=== PATIENT | female | born 1935 | race Caucasian/White ===

== ENCOUNTER 2018-12-07 15:57 | Observation (INO) ==
[2018-12-07 16:27] LABS: Urine Bilirubin Negative (NEGATIVE); Urine Ketone Negative (NEGATIVE); Urine Nitrite Negative (NEGATIVE); Urine Protein Negative (NEGATIVE); Urine Specific Gravity 1.025 SP.GR. (1.005-1.010); Urine Urobilinogen Normal (NORMAL); Urine pH 5.5 pH (5.0-7.0)
[2018-12-07] MEDS ORDERED: DIATRIZOATE MEGLUMINE, SODIUM 30 ML BTL PO ONE (16:27)
[2018-12-07 16:31] LABS: Hematocrit 44.8 % (37.0-47.0); Hemoglobin 14.6 gm/dL (12.5-16.0); Mean Cell Volume 91.8 fl (78-100); Mean Corpuscular Hemoglobin 29.9 pg (27-31); Mean Corpuscular Hgb Conc 32.6 g/dl (32-36); Mean Platelet Volume 10.3 fl (8-12.5); Neutrophil # 6.4 K/mm3 (1.3-6.0); Neutrophil % 66.8 % (42-75.0); Platelet Count 260 K/mm3 (150-450); Red Blood Count 4.88 M/mm3 (4.2-5.4); Red Cell Distribution Width 14.2 % (11.5-14.0); White Blood Count 9.6 K/mm3 (4.0-10.5)
[2018-12-07 16:37] LABS: Urine Appearance Clear (CLEAR); Urine Bacteria 1+; Urine Blood 5 /ul (NEGATIVE); Urine Color Pale Yellow; Urine Mucus TRACE; Urine RBC None Seen /hpf (0-5); Urine WBC None Seen /hpf (0-5)
[2018-12-07 16:55] LABS: Albumin * 4.1 gm/dl (3.4-5.0); Anion Gap 11.8 mmol/L (6.8-13.8); BUN/Creatinine Ratio 16.3 (9.0-21.6); Bilirubin, Total 0.6 mg/dL (0.0-1.1); Ca. Corrected For Albumin 8.3 mg/dL (8.4-10.2); Calcium * 8.7 mg/dL (7.9-10.9); Carbon Dioxide 30.4 mmol/L (24-32.6); Potassium 3.2 mmol/L (3.4-4.6); Total Protein 7.6 gm/dL (6.2-8.2)
[2018-12-07] MEDS ORDERED: ONDANSETRON HCL/PF 2 MG/ML VIAL IV ONE ×2 (17:00→17:44)
[2018-12-07] MEDS ORDERED: METOCLOPRAMIDE HCL 5 MG/ML VIAL IV ONE (19:10)
--- NOTE | 2018-12-07 19:15 | ERNOTE ---
Abdominal HPI - Narrative Date of Service: 12/07/18 - General Chief Complaint: Abdominal Pain Time Seen by Provider: 12/07/18 16:21 Source: patient Exam Limitations: no limitations - Immun/Allergies/Home Medications Immunizatons: IMMUNIZATION HX Immunizations Up to Date No History of Influenza Vaccine No Hx Pneumococcal Vaccination Yes Allergies/Adverse Reactions: Allergies codeine [Codeine] Adverse Reaction (Unknown, Verified 12/07/18 16:11) unknown Home Medications: HOME MEDICATIONS Aspirin [Aspirin Enteric Coated] 81 mg PO DAILY 08/08/12 [Last Taken 08/08/12 07:30] Atorvastatin Calcium [Lipitor] 10 mg PO DAILY 02/13/14 [Last Taken Unknown] Metoprolol Tartrate [Lopressor] 12.5 mg PO BID 02/13/14 [Last Taken Unknown] Ciprofloxacin HCl [Cipro] 500 mg PO BID #20 tab 12/01/18 [Last Taken Unknown] Ondansetron [Zofran Odt] 4 mg PO Q6H PRN #20 tab 12/01/18 [Last Taken Unknown] - History of Present Illness Narrative: Patient presents to the ED for no bowel movement and abdominal cramping since Tuesday. She had problems woth constipation for some time, was seen here on with x-ray and labs. Treated with ABx for UTI but still has not had BM and having central abdominal cramping. No CP or SOB. Nausea with this. No fever. Still urinating normally. No back pain. Timing: constant, getting worse Quality: moderate Activities at Onset: none Modifying Factors - (Improves): Present: other - nothing Modifying Factors - (Worsens): Present: other - nothing Associated Symptoms: Present: nausea. Absent: back pain, fever/chills, shortness of breath, swelling/mass in abdomen Prior Abdominal Problems: Absent: recent trauma Prior Treatment: Present: recently seen, currently on antibiotics Review of Systems - Review of Systems Constitutional: Absent: fever Respiratory: Absent: shortness of breath Cardiology: Absent: chest pain Gastrointestinal/Abdominal: Present: See HPI Genitourinary: Absent: dysuria Musculoskeletal: Present: no symptoms reported Neurological: Absent: weakness All Other Systems: All systems neg except as marked Medical History (Updated 12/07/18 @ 19:15 by Samir Santana MD) HLD (hyperlipidemia) HTN (hypertension) Surgical History: Surgical History (Updated 12/01/18 @ 09:37 by Jaison Mac RN) Hx of heart valve replacement with bioprosthetic valve Family History: Family History (Updated 12/01/18 @ 10:37 by Melissa Cage RN) Other No pertinent family history Social History: (Last Reviewed 12/07/18 @ 19:13 by Samir Santana MD) Tobacco: Smoking Status: Never smoker Physical Exam - Physical Exam General Appearance: Present: alert, no apparent distress Head Exam: Present: normal inspection, no evidence of injury Eye Exam: Normal inspection: bilateral, PERRL: bilateral Ears, Nose, Throat: Present: normal ENT inspection Neck: Present: normal inspection Respiratory: Present: no respiratory distress, normal breath sounds, no accessory muscle use, lungs clear Cardiovascular/Chest: Present: regular rate, rhythm, normal peripheral pulses Gastrointestinal/Abdominal: Present: normal bowel sounds, nondistended, soft, other - mild mid abdominal tenderness to palpation. No peritoneal signs, no guarding or rebound. NOn-surgical exam Back Exam: Absent: CVA tenderness (R), CVA tenderness (L) Extremity Exam: Present: normal range of motion Neurological Exam: Present: alert, no motor/sensory deficits Skin Exam: Present: normal color, warm/dry Progress - Results and Orders Patient's Lab Results:: I have reviewed the patient's lab results. - Vital Signs Patient's Vital Signs:: I have reviewed the patient's vital signs. Vital Signs: Vital Signs 12/07/18 16:06 12/07/18 16:36 12/07/18 17:07 Temperature 35.6 C L Pulse Rate 57 L 68 79 Respiratory Rate 14 14 100 H Blood Pressure 163/81 H 192/75 H 154/67 H O2 Sat by Pulse Oximetry 99 98 19 L 12/07/18 17:47 12/07/18 18:52 Temperature Pulse Rate 74 74 Respiratory Rate 18 Blood Pressure 169/64 H 155/67 H O2 Sat by Pulse Oximetry 100 99 - CT/Ultrasound CT/Ultrasound Narrative: I reviewed official radiology report for CT abd/pelvis - Progress/Reassessment Chief Complaint: Abdominal Pain Progress Note-Subjective: 12/07/18 19:32 Here patient developed recurrent vomiting. Zofran utilized in 2 doses. Despite this she continued to vomit and Reglan given. When I went in to discuss CT results with her she was vomiting and having increased pain. Fentanyl given for pain. She has diverticulitis and now recurrent vomiting. On CIpro at home. Ordered IV flagyl and IV Levaquin. She feels like staying in the hospital and I feel that is reasonable given her failure of outpatient management, recuurent vomiting, pain and diverticulitis along with her age. D/W Dr Parada who will admit obs. Departure Clinical Impression: Constipation, Abdominal pain, Diverticulitis, Intractable vomiting, Failure of outpatient treatment - Departure Disposition: Still a patient Condition: Stable
[2018-12-07] MEDS ORDERED: fentaNYL CITRATE/PF 50 MCG/ML AMPUL IV ONE (19:24)
[2018-12-07] MEDS ORDERED: LEVOFLOXACIN IN DEXTROSE 5 % 500 MG/100 ML BAG IV SCH (19:30)
[2018-12-07] MEDS ORDERED: metroNIDAZOLE/SODIUM CHLORIDE 500 MG/100 ML BAG IV SCH (19:30)
[2018-12-07] MEDS ORDERED: NORMAL SALINE 1,000 ML IV ONE (19:53)
[2018-12-07] MEDS ORDERED: ONDANSETRON HCL/PF 2 MG/ML VIAL IV PRN (23:13)
[2018-12-08] MEDS ORDERED: APIXABAN 5 MG TABLET PO SCH (09:00)
[2018-12-08] MEDS ORDERED: FLU VACC QS2019-20(6MOS UP)/PF 60 MCG/0.5 ML SYRINGE IM ONE (09:00)
[2018-12-08] MEDS ORDERED: METOPROLOL TARTRATE 25 MG TABLET PO SCH (09:00)
[2018-12-08] MEDS ORDERED: ASPIRIN 81 MG TABLET.DR PO SCH (09:00)
--- NOTE | 2018-12-08 14:35 | HPDIS ---
Chief Complaint - Chief Complaint Date of Service: 12/08/18 Time of Service: 14:19 Chief Complaint: abdominal pain, nausea/vomiting History of Present Illness: 83-year-old female presented to the ED with 1 week abdominal pain, cramping, constipation. While in the ER she had a CT scan which showed acute non-complicated diverticulitis. She is admitted to the floor due to intractable nausea and vomiting. Patient received Phenergan and Zofran in the ER which helped a little but not enough for the ER doctor was comfortable sending her home. She is a history of hypertension hyperlipidemia. She was seen a week earlier for the same issues and was sent home on Cipro. While here her vital signs been stable and her labs are fairly unremarkable. She did have a slightly low potassium at 3.2 which is to be expected due to recent vomiting. This was replaced prior to discharge but not rechecked. She will follow with her PCP in [place] in a week for routine follow-up from the hospital and have her potassium checked then. Patient no longer vomiting so this should not be an issue for her. While here patient had 2 bowel movements which relieved all of her pain and her nausea vomiting resolved. Patient was able to tolerate regular diet without complication and discharged home without any changes to her medications in a stable condition. Medical History (Updated 12/07/18 @ 19:37 by Samir Santana MD) HLD (hyperlipidemia) HTN (hypertension) Surgical History: Surgical History (Updated 12/01/18 @ 09:37 by Jaison Mac RN) Hx of heart valve replacement with bioprosthetic valve Family History: Family History (Last Updated 12/07/18 @ 20:30 by Albania Stuart RN) Son Pancreatic cancer Diabetes type 2, controlled Social History: (Last Updated 12/07/18 @ 20:27 by Albania Stuart RN) Tobacco: Smoking Status: Never smoker Alcohol: alcohol intake: never Dietary Habits: well-balanced diet: daily or most days caffeine: Yes Type: coffee Pets: pets and animals: dog(s) Sheila/Amish: sheila/buddhism: None Safety: seatbelt use: never Review Of Systems (GEN) - Review of Systems Generalized/Overall Review: Absent: Chills, Fever EENTM: Present: No Symptoms Reported Respiratory: Absent: Cough, Shortness of Breath Cardiac: Absent: Chest Pain, Palpitations Abdominal: Present: Nausea, Vomiting, Abdominal Pain, Constipation. Absent: Diarrhea, Melena Genitourinary: Present: No Symptoms Reported Musculoskeletal: Present: No Symptoms Reported Neurological: Present: No Symptoms Reported Skin: Present: No Symptoms Reported Immunizations: IMMUNIZATION HX Immunizations Up to Date No History of Influenza Vaccine No Hx Pneumococcal Vaccination Yes Allergies/Adverse Reactions: Allergies Allergy/AdvReac Type Severity Reaction Status Date / Time codeine [Codeine] AdvReac Unknown unknown Verified 12/07/18 16:11 Home Medications: HOME MEDICATIONS Aspirin [Aspirin Enteric Coated] 81 mg PO DAILY 08/08/12 [Last Taken 08/08/12 07:30] Atorvastatin Calcium [Lipitor] 10 mg PO HS 02/13/14 [Last Taken Unknown] Metoprolol Tartrate [Lopressor] 12.5 mg PO BID 02/13/14 [Last Taken 12/08/18] Ondansetron [Zofran Odt] 4 mg PO Q6H PRN #20 tab 12/01/18 [Last Taken Unknown] Apixaban [Eliquis] 5 mg PO DAILY 12/07/18 [Last Taken Unknown] Amox Tr/Potassium Clavulanate [Augmentin 875-125 Tablet] 875 mg PO Q12H #14 tab 12/08/18 [Last Taken Unknown] Furosemide [Lasix] 20 mg PO DAILY 12/08/18 [Last Taken Unknown] Levothyroxine Sodium [Synthroid] 25 mcg PO DAILY 12/08/18 [Last Taken Unknown] amLODIPine BESYLATE [Norvasc] 5 mg PO DAILY 12/08/18 [Last Taken Unknown] Exam - Exam Vital Signs: Vital Signs - Last Taken Temp 36.5 C 12/08/18 10:24 Pulse 57 L 12/08/18 10:24 Resp 16 12/08/18 10:24 BP 131/57 12/08/18 10:24 Pulse Ox 100 12/08/18 10:24 Constitutional: Present: Alert, Oriented x3, Cooperative, No distress ENT Exam: Present: hearing grossly normal. Absent: nasal drainage, pharyngeal erythema Eye Exam: bilateral eye: normal inspection Neck: Present: non-tender, supple Back Exam: Present: normal inspection, no CVA tenderness Respiratory: Present: lungs clear, normal breath sounds Cardiovascular/Chest: Present: regular rate, rhythm, no murmur Abdomen: Present: Normal bowel sounds, soft, nontender, nondistended /Rectal: Present: Exam deferred Skin Exam: Present: normal color, warm/dry Appearance: Present: appropriate appearance, appropriate insight Eye contact: Present: cooperative, good eye contact Thoughts: Present: normal thought pattern, normal mood /affect Diagnostic Studies: Abnormal Lab Results 12/07/18 12/07/18 12/07/18 Range/Units 16:15 16:15 16:20 RDW 14.2 H (11.5-14.0) % Immature Gran # (Auto) 0.04 H (0.000-0.0310) K/mm3 Neutrophils # 6.4 H (1.3-6.0) K/mm3 Potassium 3.2 L (3.4-4.6) mmol/L Random Glucose 114 H (70-110) mg/dL Calcium Adj for Albumin 8.3 L (8.4-10.2) mg/dL ALT 14 L (19-67) U/L Urine Blood 5 H (NEGATIVE) /ul Urine Bacteria 1+ H (NONE) Laboratory Results WBC 9.6 K/mm3 (4.0-10.5) 12/07/18 16:15 RBC 4.88 M/mm3 (4.2-5.4) 12/07/18 16:15 Hgb 14.6 gm/dL (12.5-16.0) 12/07/18 16:15 Hct 44.8 % (37.0-47.0) 12/07/18 16:15 MCV 91.8 fl (78-100) 12/07/18 16:15 MCH 29.9 pg (27-31) 12/07/18 16:15 MCHC 32.6 g/dl (32-36) 12/07/18 16:15 RDW 14.2 % (11.5-14.0) H 12/07/18 16:15 Plt Count 260 K/mm3 (150-450) 12/07/18 16:15 MPV 10.3 fl (8-12.5) 12/07/18 16:15 Immature Gran % (Auto) 0.40 % (0.001-0.429) 12/07/18 16:15 Immature Gran # (Auto) 0.04 K/mm3 (0.000-0.0310) H 12/07/18 16:15 66.8 % (42-75.0) 12/07/18 16:15 25.3 % (20-51) 12/07/18 16:15 5.7 % (0.0-9) 12/07/18 16:15 1.2 % (0.0-3.0) 12/07/18 16:15 0.6 % (0.0-1.0) 12/07/18 16:15 Nucleated RBC % 0.0 k/mm3 (0-1) 12/07/18 16:15 6.4 K/mm3 (1.3-6.0) H 12/07/18 16:15 2.43 k/mm3 (1.5-3.5) 12/07/18 16:15 0.6 k/mm3 (0.0-1.0) 12/07/18 16:15 0.1 k/mm3 (0.0-0.7) 12/07/18 16:15 Absolute Basophils 0.1 k/mm3 (0.0-0.1) 12/07/18 16:15 Sodium 141 mmol/L (132-142) 12/07/18 16:15 141 mmol/L (130-142) 12/07/18 16:15 Potassium 3.2 mmol/L (3.4-4.6) L 12/07/18 16:15 Chloride 102 mmol/L (97-106) 12/07/18 16:15 Carbon Dioxide 30.4 mmol/L (24-32.6) 12/07/18 16:15 11.8 mmol/L (6.8-13.8) 12/07/18 16:15 BUN 14 mg/dL (3-23) D 12/07/18 16:15 0.86 mg/dL (0.4-1.4) 12/07/18 16:15 Est GFR (Non-Af Amer) 67 mL/min (60-130) 12/07/18 16:15 16.3 (9.0-21.6) 12/07/18 16:15 114 mg/dL (70-110) H 12/07/18 16:15 Calcium 8.7 mg/dL (7.9-10.9) 12/07/18 16:15 Calcium Adj for Albumin 8.3 mg/dL (8.4-10.2) L 12/07/18 16:15 0.6 mg/dL (0.0-1.1) 12/07/18 16:15 AST 14 U/L (0-48) 12/07/18 16:15 ALT 14 U/L (19-67) L 12/07/18 16:15 165 U/L (50-170) 12/07/18 16:15 7.6 gm/dL (6.2-8.2) 12/07/18 16:15 4.1 gm/dl (3.4-5.0) 12/07/18 16:15 Amylase 44 U/L (25-115) 12/07/18 16:15 159 U/L (73-393) 12/07/18 16:15 Pale yellow 12/07/18 16:20 Clear (CLEAR) 12/07/18 16:20 5.5 pH (5.0-7.0) 12/07/18 16:20 Ur Specific [place] 1.025 SP.GR. (1.005-1.010) 12/07/18 16:20 Negative mg/dL (NEGATIVE) 12/07/18 16:20 Negative mg/dL (NEGATIVE) 12/07/18 16:20 Negative mg/dL (NEGATIVE) 12/07/18 16:20 5 /ul (NEGATIVE) H 12/07/18 16:20 Negative (NEGATIVE) 12/07/18 16:20 Negative mg/dl (NEGATIVE) 12/07/18 16:20 Normal EU/dl (NORMAL) 12/07/18 16:20 Ur Leukocyte Esterase Negative /ul (NEGATIVE) 12/07/18 16:20 None seen /hpf (0-5) 12/07/18 16:20 None seen /hpf (0-5) 12/07/18 16:20 Ur Epithelial Cells Trace /hpf (0-5) 12/07/18 16:20 1+ (NONE) H 12/07/18 16:20 Trace (NONE) 12/07/18 16:20 No culture indicated 12/07/18 16:20 Assessment/Plan - Narrative Narrative: Patient brought in to the hospital under observation for intractable nausea vomiting. CT scan fairly unremarkable though did show likely acute diverticulitis. Patient received a dose of Levaquin in the ER, patient currently on Cipro. We will stop the Cipro and start her on Augmentin to be taken for the next week. Patient to follow-up with her PCP upon discharge. Sandy lewis currently asymptomatic, no nausea or vomiting. Bowel pain is resolved with bowel movements x2 after admission. Patient's vital signs been stable and she is been afebrile. For constipation problems advised patient to increase her fluids daily as well as to take MiraLAX or Metamucil on a regular basis. Hypertension controlled currently no changes to her medications at this time Hyperlipidemia No DVT prophylaxis patient states expect to be less than 2 days, patient placed on a regular diet which she tolerated well today. Nurse to call with questions or concerns. - Assessment/Plan (1) Diverticulitis Problem: Acute (2) Abdominal pain Problem: Resolved (3) Constipation Problem: Resolved (4) Intractable vomiting Problem: Resolved (5) Failure of outpatient treatment Problem: Acute (1) Diverticulitis Problem: Acute (2) Abdominal pain Problem: Resolved (3) Constipation Problem: Resolved (4) Intractable vomiting Problem: Resolved (5) Failure of outpatient treatment Problem: Acute Date of Discharge:: 12/08/18 Description of Stay: 83-year-old female presented to the ED with 1 week abdominal pain, cramping, constipation. While in the ER she had a CT scan which showed acute non-complicated diverticulitis. She is admitted to the floor due to intractable nausea and vomiting. Patient received Phenergan and Zofran in the ER which helped a little but not enough for the ER doctor was comfortable sending her home. She is a history of hypertension hyperlipidemia. She was seen a week earlier for the same issues and was sent home on Cipro. While here her vital signs been stable and her labs are fairly unremarkable. She did have a slightly low potassium at 3.2 which is to be expected due to recent vomiting. This was replaced prior to discharge but not rechecked. She will follow with her PCP in [place] in a week for routine follow-up from the hospital and have her potassium checked then. Patient no longer vomiting so this should not be an issue for her. While here patient had 2 bowel movements which relieved all of her pain and her nausea vomiting resolved. Patient was able to tolerate regular diet without complication and discharged home without any changes to her medications in a stable condition. Patient brought in to the hospital under observation for intractable nausea vomiting. CT scan fairly unremarkable though did show likely acute diverticulitis. Patient received a dose of Levaquin in the ER, patient currently on Cipro. We will stop the Cipro and start her on Augmentin to be taken for the next week. Patient to follow-up with her PCP upon discharge. Patient currently asymptomatic, no nausea or vomiting. Bowel pain is resolved with bowel movements x2 after admission. Patient's vital signs been stable and she is been afebrile. For constipation problems advised patient to increase her fluids daily as well as to take MiraLAX or Metamucil on a regular basis. Hypertension controlled currently no changes to her medications at this time Hyperlipidemia Patient discharged in stable condition Procedures Performed: none Results and Findings: Lab Pending Results 12/07/18 16:15: WBC 9.6, RBC 4.88, Hgb 14.6, Hct 44.8, MCV 91.8, MCH 29.9, MCHC 32.6, RDW 14.2 H, Plt Count 260, MPV 10.3, Immature Gran % (Auto) 0.40, Immature Gran # (Auto) 0.04 H, Neutrophils % 66.8, Lymphocytes % 25.3, Monocytes % 5.7, Eosinophils % 1.2, Basophils % 0.6, Nucleated RBC % 0.0, Neutrophils # 6.4 H, Lymphocytes # 2.43, Monocytes # 0.6, Eosinophils # 0.1, Absolute Basophils 0.1 12/07/18 16:15: Sodium 141, Plasma Sodium 141, Potassium 3.2 L, Chloride 102, Carbon Dioxide 30.4, Anion Gap 11.8, BUN 14 D, Creatinine 0.86, Est GFR (Non-Af Amer) 67, BUN/Creatinine Ratio 16.3, Random Glucose 114 H, Calcium 8.7, Calcium Adj for Albumin 8.3 L, Total Bilirubin 0.6, AST 14, ALT 14 L, Alkaline Phosphatase 165, Total Protein 7.6, Albumin 4.1, Amylase 44, Lipase 159 12/07/18 16:20: Urine Color Pale yellow, Urine Appearance Clear, Urine pH 5.5, Ur Specific [place] 1.025, Urine Protein Negative, Urine Glucose (UA) Negative, Urine Ketones Negative, Urine Blood 5 H, Urine Nitrate Negative, Urine Bilirubin Negative, Urine Urobilinogen Normal, Ur Leukocyte Esterase Negative, Urine RBC None seen, Urine WBC None seen, Ur Epithelial Cells Trace, Urine Bacteria 1+ H, Urine Mucus Trace, Urine Culture Comments No culture indicated Disposition: Home self-care Condition: Stable Discharge Activity: Activity as tolerated Discharge Diet: Low salt Additional Patient Instructions (free text): -Please make TCM appointment unless intermediate discharge, or if following up with outside provider. Thank you! Flor @ [facility] [phone] or Maida at [phone]. Prescriptions (Any new or edited meds): Amox Tr/Potassium Clavulanate [Augmentin 875-125 Tablet] 875 mg PO Q12H #14 tab Complete Home Medications List: Complete Home Medication List: Aspirin [Aspirin Enteric Coated] 81 mg PO DAILY 08/08/12 Atorvastatin Calcium [Lipitor] 10 mg PO HS 02/13/14 Metoprolol Tartrate [Lopressor] 12.5 mg PO BID 02/13/14 Ondansetron [Zofran Odt] 4 mg PO Q6H PRN #20 tab 12/01/18 Apixaban [Eliquis] 5 mg PO DAILY 12/07/18 Amox Tr/Potassium Clavulanate [Augmentin 875-125 Tablet] 875 mg PO Q12H #14 tab 12/08/18 Furosemide [Lasix] 20 mg PO DAILY 12/08/18 Levothyroxine Sodium [Synthroid] 25 mcg PO DAILY 12/08/18 amLODIPine BESYLATE [Norvasc] 5 mg PO DAILY 12/08/18
[2018-12-08] MEDS ORDERED: POTASSIUM CHLORIDE 40 MEQ/15 ML LIQUID PO ONE (14:45)
[2018-12-08 16:18] VITALS: BP 142/53
[2018-12-08] MEDS ORDERED: ROSUVASTATIN CALCIUM 10 MG TABLET PO SCH (21:00)
== END 2018-12-08 15:20 | disposition home or self-care (01) ==
LOC: ER 15:57 → MS 15:57
PROVIDERS: ADMIT Family Medicine; ATTEND Family Medicine
CPT/HCPCS: 36415; 74177; 80053; 81001; 82150; 83690; 85025; 90686; 96365; 96367; 96375; 99285; G0008; G0378; J2405; Q9963; Q9967

== ENCOUNTER 2019-05-24 13:07 | Inpatient (IN) ==
--- NOTE | 2019-05-24 14:06 | ERNOTE ---
Neuro HPI ER Record Presenting Symptoms: weakness Time Seen by Provider: 05/24/19 13:39 Source: patient Exam Limitations: no limitations Immunizations: IMMUNIZATION HX Immunizations Up to Date Yes History of Influenza Vaccine Yes Hx Pneumococcal Vaccination Yes Allergies/Adverse Reactions: Allergies Allergy/AdvReac Type Severity Reaction Status Date / Time codeine [Codeine] AdvReac Unknown unknown Verified 05/24/19 13:10 Home Medications: HOME MEDICATIONS Aspirin [Aspirin Enteric Coated] 81 mg PO DAILY 08/08/12 [Last Taken 08/08/12 07:30] Atorvastatin Calcium [Lipitor] 10 mg PO HS 02/13/14 [Last Taken Unknown] Metoprolol Tartrate [Lopressor] 12.5 mg PO BID 02/13/14 [Last Taken 12/08/18] Ondansetron [Zofran Odt] 4 mg PO Q6H PRN #20 tab 12/01/18 [Last Taken Unknown] Apixaban [Eliquis] 5 mg PO DAILY 12/07/18 [Last Taken Unknown] Furosemide [Lasix] 20 mg PO DAILY 12/08/18 [Last Taken Unknown] Levothyroxine Sodium [Synthroid] 25 mcg PO DAILY 12/08/18 [Last Taken Unknown] amLODIPine BESYLATE [Norvasc] 5 mg PO DAILY 12/08/18 [Last Taken Unknown] - History of Present Illness Narrative: Patient is here for a possible stroke. She was seen here yesterday after her daughter thought her voice sounded different on the phone. The patient had no concerns but was found to have a left facial droop which improved while here, CT head was normal and patient was send home with outpatient orders for further testing and instructions to take a daily aspirin. Patient is here as daughter (who lives on the [facility]) called EMS and asked that her mother be taken to the hospital for a stroke. Patient's only concern is that she feels weak and had to crawl to the bathroom as she was too weak. Per EMS patient walked out of the house. Date (Duration): 05/23/19 Onset: cannot confirm onset - Character of Deficits Additional Deficits: Absent: vision problems Baseline Cognition: Present: alert, oriented x 4 Baseline Gait: Present: walks w/o assistance Associated Symptoms: Denies: fever/chills, chest pain Prior Treament: Reports: recently seen Review of Systems - Review of Systems Constitutional: Absent: recent illness, fever EYE: Absent: vision changes ENT: Absent: sore throat Respiratory: Absent: shortness of breath Cardiology: Absent: chest pain Gastrointestinal/Abdominal: Absent: nausea Genitourinary: Present: no symptoms reported Musculoskeletal: Absent: back pain Neurological: Present: See HPI. Absent: headache Medical History (Last Reviewed 05/24/19 @ 14:02 by Carla Tinsley MD) Hypothyroid HLD (hyperlipidemia) HTN (hypertension) Surgical History: Surgical History (Last Reviewed 05/24/19 @ 14:02 by Carla Tinsley MD) Hx of heart valve replacement with bioprosthetic valve Family History: Family History (Last Reviewed 05/24/19 @ 13:10 by Faisal Flores, RN) Son Pancreatic cancer Diabetes type 2, controlled Social History: (Last Reviewed 05/24/19 @ 13:10 by Faisal Flores, RN) Tobacco: Smoking Status: Never smoker Alcohol: alcohol intake: never Dietary Habits: well-balanced diet: daily or most days caffeine: Yes Type: coffee Pets: pets and animals: dog(s) Sheila/Jehovah'S Witness: sheila/taoism: None Safety: seatbelt use: never Physical Exam - Physical Exam General Appearance: Present: wd/wn, alert, no apparent distress, other - patient wears same clothes as yesterday Head Exam: Present: normal inspection, no evidence of injury Eye Exam: Normal inspection: bilateral Ears, Nose, Throat: Present: normal ENT inspection Neck: Present: normal inspection, nontender, supple, full range of motion Respiratory: Present: no respiratory distress, normal breath sounds, no accessory muscle use, lungs clear Cardiovascular/Chest: Present: regular rate, rhythm, no murmur Gastrointestinal/Abdominal: Present: normal bowel sounds, nontender, nondistended, soft Extremity Exam: Present: no edema Neurological Exam: Present: alert, oriented, normal mood/affect, no motor/sensory deficits - except left facial droop, facial droop - left lower face (mild) Skin Exam: Present: normal color, warm/dry [place] Coma Scale - Assess Eye Opening: Spontaneous Motor: Obeys Commands Verbal: Oriented - Total Coma Scale Total: 15 Initial Stroke Assessment - NIH Stroke Scale Level of Consciousness: Alert LOC Questions (Year and Age): Answers one correctly LOC Commands (open/close eyes/fist): Performs both correctly Lateral Gaze Paresis: None Visual Field Loss: No visual loss Facial Palsy: Minor paralysis - improved from yesterday Right Arm Motor (10 sec hold): No drift Left Arm Motor (10 sec hold): No drift Right Leg Motor (5 sec hold): No drift Left Leg Motor (5 sec hold): No drift Limb Ataxia (finger/nose heel/ac): Absent Sensory Loss (pinprick arms/legs/face): No sensory loss Language Aphasia (description/naming/reading): No aphasia; normal Dysarthria (speech clarity): Normal articulation Neglect Inattention (visual/tactile/auditory/spatial/person): No neglect Initial Stroke Scale Score:: 2 Progress - Results and Orders Patient's Lab Results:: I have reviewed the patient's lab results. - Vital Signs Patient's Vital Signs:: I have reviewed the patient's vital signs. Vital Signs: Vital Signs 05/24/19 13:12 Temperature 37.2 C Pulse Rate 90 Respiratory Rate 16 Blood Pressure 135/68 O2 Sat by Pulse Oximetry 95 - EKG EKG #1 EKG: NSR, RBBB EKG read: Interp. by me - Progress/Reassessment Chief Complaint: General Assessment Progress Note-Subjective: 05/24/19 15:07 discussed with daughter who lives on the [facility]. She was not aware that patient was discharged yesterday with diagnosis of CVA, was concerned that patient was having speech problems and weakness today discussed testing from yesterday and that symptoms were improving as patient was discharged and outpatient testing set up discussed MRI results as they became available which 05/24/19 15:18 call to [facility] 05/24/19 15:57 discussed with stroke team at [facility] (Dr Montaño), hold elliquis for 2-3 days, give ASA during that time, then restart elliquis and stop aspirin, finish work up with echo and carotid doppler, there is no benefit in transferring patient to the [facility] 05/24/19 16:20 discussed with yash Edwards to admit for acute stroke and UTI Departure Clinical Impression: Acute UTI CVA (cerebral vascular accident) Qualifiers: CVA mechanism: unspecified Qualified Code(s): I63.9 - Cerebral infarction, unspecified - Departure Disposition: Still a patient Condition: Stable
[2019-05-24 14:07] LABS: Urine Bilirubin Negative (NEGATIVE); Urine Blood 25 /ul (NEGATIVE); Urine Ketone Negative (NEGATIVE); Urine Protein Negative (NEGATIVE); Urine Urobilinogen Normal (NORMAL); Urine pH 5.5 pH (5.0-7.0)
[2019-05-24 14:22] LABS: Urine Appearance Clear (CLEAR); Urine Bacteria 3+; Urine Color Pale Yellow; Urine Nitrite Positive (NEGATIVE); Urine RBC TRACE /hpf (0-5); Urine WBC TRACE /hpf (0-5)
[2019-05-24] MEDS ORDERED: NITROFURANTOIN/NITROFURAN MAC 100 MG CAPSULE PO ONE (14:43)
--- NOTE | 2019-05-24 16:48 | HP ---
Chief Complaint - Chief Complaint Date of Service: 05/24/19 Time of Service: 16:24 Chief Complaint: Slurred speech and weakness x2 days History of Present Illness: 84-year-old female with a past medical history of atrial fibrillation on Eliquis, hypothyroidism, hypertension, hyperlipidemia, bioprosthetic valve replacement presents from home with complaints of slurred speech. She presented to the emergency department yesterday with similar complaints and was sent home on aspirin. Her daughter spoke with her on the phone today and told her she should go back to the emergency room because she sounded like she was having a stroke. In the ER today she had a MRI done that showed multiple scattered focal areas of restricted diffusion in the right parietal and right occipital lobes consistent with multiple acute ischemic infarcts, consider embolic infarcts. She was also found to have a positive UA and given a dose of Macrobid in the ER. She will be admitted for an acute ischemic infarct. She will need carotid ultrasound and an echocardiogram. The stroke team at the [facility] has been consulted by the ER physician and recommended holding her Eliquis for 3 days to prevent hemorrhagic conversion. They recommended to start aspirin now and continue until we restart the Eliquis, then stop aspirin at that time. Patient states she did not take her Eliquis today. The stroke team did not think she needed to be transferred because they would not do anything differently. Medical History (Last Reviewed 05/24/19 @ 14:02 by Carla Tinsley MD) Hypothyroid HLD (hyperlipidemia) HTN (hypertension) Surgical History: Surgical History (Last Reviewed 05/24/19 @ 14:02 by Carla Tinsley MD) Hx of heart valve replacement with bioprosthetic valve Family History: Family History (Last Reviewed 05/24/19 @ 13:10 by Faisal Flores RN) Son Pancreatic cancer Diabetes type 2, controlled Social History: (Last Reviewed 05/24/19 @ 13:10 by Faisal Flores RN) Tobacco: Smoking Status: Never smoker Alcohol: alcohol intake: never Dietary Habits: well-balanced diet: daily or most days caffeine: Yes Type: coffee Pets: pets and animals: dog(s) Sheila/Spiritism: sheila/advent: None Safety: seatbelt use: never Review Of Systems (GEN) - Review of Systems Generalized/Overall Review: Present: Weakness Respiratory: Absent: Shortness of Breath Cardiac: Absent: Chest Pain Abdominal: Absent: Abdominal Pain Genitourinary: Absent: Burning, Frequency Misc: All systems neg except as marked Immunizations: IMMUNIZATION HX Immunizations Up to Date Yes History of Influenza Vaccine Yes Hx Pneumococcal Vaccination Yes Allergies/Adverse Reactions: Allergies Allergy/AdvReac Type Severity Reaction Status Date / Time codeine [Codeine] AdvReac Unknown unknown Verified 05/24/19 13:10 Home Medications: HOME MEDICATIONS Aspirin [Aspirin Enteric Coated] 81 mg PO DAILY 08/08/12 [Last Taken 08/08/12 07:30] Atorvastatin Calcium [Lipitor] 10 mg PO HS 02/13/14 [Last Taken Unknown] Metoprolol Tartrate [Lopressor] 12.5 mg PO BID 02/13/14 [Last Taken 12/08/18] Ondansetron [Zofran Odt] 4 mg PO Q6H PRN #20 tab 12/01/18 [Last Taken Unknown] Apixaban [Eliquis] 5 mg PO DAILY 12/07/18 [Last Taken Unknown] Furosemide [Lasix] 20 mg PO DAILY 12/08/18 [Last Taken Unknown] Levothyroxine Sodium [Synthroid] 25 mcg PO DAILY 12/08/18 [Last Taken Unknown] amLODIPine BESYLATE [Norvasc] 5 mg PO DAILY 12/08/18 [Last Taken Unknown] Exam - Exam Vital Signs: Vital Signs - Last Taken Temp 37.2 C 05/24/19 13:12 Pulse 87 05/24/19 16:32 Resp 15 05/24/19 16:32 BP 145/74 05/24/19 16:32 Pulse Ox 97 05/24/19 16:32 Constitutional: Present: Alert, Cooperative, Well developed, Well nourished, No distress, Elderly Eye Exam: bilateral eye: normal inspection, PERRL, EOMI Neck: Present: non-tender, supple. Absent: lymphadenopathy (R), lymphadenopathy (L) Back Exam: Present: normal inspection, no CVA tenderness, no vertebral tenderness Respiratory: Present: lungs clear, no respiratory distress, no accessory muscle use, No wheezing. Absent: crackles, rhonchi Cardiovascular/Chest: Present: normal peripheral pulses, regular rate, rhythm, no edema, systolic murmur Peripheral Pulses: dorsalis-pedis (R): 1+, dorsalis-pedis (L): 1+ Abdomen: Present: Normal bowel sounds, soft, nontender Extremity: Present: normal range of motion, no pedal edema Skin Exam: Present: normal color, warm/dry Neurologic: Present: alert, normal mood/affect, abnormal management trainee marketing II-XII - Left facial droop on the lower one third of her face., motor weakness - Left arm weak, 4 out of 5 strength. 5 out of 5 strength throughout all other extremities. Appearance: Present: appropriate appearance, appropriate insight Eye contact: Present: cooperative Thoughts: Present: normal thought pattern, normal mood /affect Diagnostic Studies: Abnormal Lab Results 05/24/19 Range/Units 13:57 Urine Blood 25 H (NEGATIVE) /ul Urine Nitrate Positive H (NEGATIVE) Urine WBC Trace H (0-5) /hpf Urine Bacteria 3+ H (NONE) Laboratory Results Urine Color Pale yellow 05/24/19 13:57 Urine Appearance Clear (CLEAR) 05/24/19 13:57 Urine pH 5.5 pH (5.0-7.0) 05/24/19 13:57 Ur Specific [place] 1.010 SP.GR. (1.005-1.010) 05/24/19 13:57 Urine Protein Negative mg/dL (NEGATIVE) 05/24/19 13:57 Urine Glucose (UA) Negative mg/dL (NEGATIVE) 05/24/19 13:57 Urine Ketones Negative mg/dL (NEGATIVE) 05/24/19 13:57 Urine Blood 25 /ul (NEGATIVE) H 05/24/19 13:57 Urine Nitrate Positive (NEGATIVE) H 05/24/19 13:57 Urine Bilirubin Negative mg/dl (NEGATIVE) 05/24/19 13:57 Urine Urobilinogen Normal EU/dl (NORMAL) 05/24/19 13:57 Ur Leukocyte Esterase Negative /ul (NEGATIVE) 05/24/19 13:57 Urine RBC Trace /hpf (0-5) 05/24/19 13:57 Urine WBC Trace /hpf (0-5) H 05/24/19 13:57 Ur Epithelial Cells 0-5 /hpf (0-5) 05/24/19 13:57 Urine Bacteria 3+ (NONE) H 05/24/19 13:57 Urine Culture Comments Culture to follow 05/24/19 13:57 Assessment/Plan - Narrative Narrative: 84-year-old female with a past medical history of atrial fibrillation on Eliquis, hypothyroidism, hypertension, hyperlipidemia, bioprosthetic valve replacement presents from home with complaints of slurred speech. She presented to the emergency department yesterday with similar complaints and was sent home on aspirin. Her daughter spoke with her on the phone today and told her she should go back to the emergency room because she sounded like she was having a stroke. In the ER today she had a MRI done that showed multiple scattered focal areas of restricted diffusion in the right parietal and right occipital lobes consistent with multiple acute ischemic infarcts, consider embolic infarcts. She was also found to have a positive UA and given a dose of Macrobid in the ER. She will be admitted for an acute ischemic infarct. She will need carotid ultrasound and an echocardiogram. The stroke team at the [facility] has been consulted by the ER physician and recommended holding her Eliquis for 3 days to prevent hemorrhagic conversion. They recommended to start aspirin now and continue until we restart the Eliquis, then stop aspirin at that time. Patient states she did not take her Eliquis today. The stroke team did not think she needed to be transferred because they would not do anything differently. Plan #1 continue aspirin 81 mg daily and stop once Eliquis is restarted on May 27, 2019. #2 Hold Eliquis for 3 days, restart on May 27, 2019 #3 obtain an echocardiogram and a bilateral carotid Doppler #3 resume home medications for comorbidities #4 CBC and BMP in the morning #5 follow-up urine culture - Assessment/Plan (1) Acute UTI Problem: Acute (2) CVA (cerebral vascular accident) Problem: Acute Qualifiers: CVA mechanism: unspecified Qualified Code(s): I63.9 - Cerebral infarction, unspecified (3) Hypertension Problem: Chronic Qualifiers: Hypertension type: essential hypertension Qualified Code(s): I10 - Essential (primary) hypertension (4) Hyperlipidemia Problem: Chronic Qualifiers: Hyperlipidemia type: unspecified Qualified Code(s): E78.5 - Hyperlipidemia, unspecified (5) Hypothyroidism (acquired) Problem: Chronic
[2019-05-24] MEDS: ROSUVASTATIN CALCIUM 10 MG TABLET PO SCH (20:58)
[2019-05-24] MEDS: METOPROLOL TARTRATE 25 MG TABLET PO SCH (20:59)
[2019-05-25 06:39] LABS: Hematocrit 38.9 % (37.0-47.0); Hemoglobin 12.6 gm/dL (12.5-16.0); Mean Cell Volume 89.6 fl (78-100); Mean Corpuscular Hgb Conc 32.4 g/dl (32-36); Mean Platelet Volume 10.4 fl (8-12.5); Neutrophil # 5.7 K/mm3 (1.3-6.0); Neutrophil % 67.6 % (42-75.0); Platelet Count 250 K/mm3 (150-450); Red Blood Count 4.34 M/mm3 (4.2-5.4); Red Cell Distribution Width 14.4 % (11.5-14.0); White Blood Count 8.4 K/mm3 (4.0-10.5)
[2019-05-25 06:53] LABS: Albumin * 3.4 gm/dl (3.4-5.0); BUN/Creatinine Ratio 21.3 (9.0-21.6); Bilirubin, Total 0.8 mg/dL (0.0-1.1); Ca. Corrected For Albumin 8.9 mg/dL (8.4-10.2); Calcium * 8.7 mg/dL (7.9-10.9); Carbon Dioxide 30.3 mmol/L (24-32.6); Potassium 3.3 mmol/L (3.4-4.6); Total Protein 6.9 gm/dL (6.2-8.2)
[2019-05-25] MEDS: LEVOTHYROXINE SODIUM 25 MCG TABLET PO SCH (07:28)
--- NOTE | 2019-05-25 09:35 | PN ---
Subjective - Date and Time Seen Date: 05/25/19 Time: 08:35 Subjective Narrative: She continues to have left facial droop and left hand weakness. Objective - Review of Systems Generalized/Overall Review: Denies: Fever Respiratory: Denies: Shortness of Breath Cardiac: Denies: Chest Pain Abdominal: Denies: Abdominal Pain Neurological: Reports: Weakness - Left arm and hand, Other - Left facial droop Misc: All systems neg except as marked - Vitals Vitals: Last Vital Signs Temp 36.8 C 05/25/19 07:22 Pulse 67 05/25/19 07:22 Resp 17 05/25/19 07:22 BP 140/86 05/25/19 07:22 Pulse Ox 97 05/25/19 07:22 - Abnormal Lab Findings Abnormal Lab Findings: Abnormal Lab Results 05/24/19 05/25/19 05/25/19 Range/Units 13:57 06:38 06:38 RDW 14.4 H (11.5-14.0) % Sodium 143 H (132-142) mmol/L Plasma Sodium 143 H (130-142) mmol/L Potassium 3.3 L (3.4-4.6) mmol/L Random Glucose 112 H (70-110) mg/dL Urine Blood 25 H (NEGATIVE) /ul Urine Nitrate Positive H (NEGATIVE) Urine WBC Trace H (0-5) /hpf Urine Bacteria 3+ H (NONE) - Exam Constitutional: Present: Alert, Cooperative, Well developed, Well nourished, No distress, Elderly ENT Exam: Present: hearing grossly normal Neck: Present: non-tender, supple. Absent: lymphadenopathy (R), lymphadenopathy (L) Respiratory: Present: lungs clear, no respiratory distress, no accessory muscle use, No wheezing. 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 5 out of 5 strength throughout all other extremities Appearance: Present: appropriate appearance, appropriate insight Eye contact: Present: cooperative, good eye contact Thoughts: Present: normal thought pattern, normal mood /affect Assessment/Plan Plan Narrative: 84-year-old female with a past medical history of atrial fibrillation on Eliquis, hypothyroidism, hypertension, hyperlipidemia, bioprosthetic valve replacement presents from home with complaints of slurred speech. She presented to the emergency department yesterday with similar complaints and was sent home on aspirin. Her daughter spoke with her on the phone today and told her she should go back to the emergency room because she sounded like she was having a stroke. In the ER today she had a MRI done that showed multiple scattered focal areas of restricted diffusion in the right parietal and right occipital lobes consistent with multiple acute ischemic infarcts, consider embolic infarcts. Irma hodge was also found to have a positive UA and given a dose of Macrobid in the ER. She will be admitted for an acute ischemic infarct. She will need carotid ultrasound and an echocardiogram. The stroke team at the [facility] has been consulted by the ER physician and recommended holding her Eliquis for 3 days to prevent hemorrhagic conversion. They recommended to start aspirin now and continue until we restart the Eliquis, then stop aspirin at that time. Patient states she did not take her Eliquis on the day of admission to the hospital. The stroke team did not think she needed to be transferred because they would not do anything differently. Plan #1 continue aspirin 81 mg daily and stop once Eliquis is restarted on May 27, 2019. #2 Hold Eliquis for 3 days, restart on May 27, 2019 #3 obtain an echocardiogram with bubble study and a bilateral carotid Doppler today #3 resume home medications for comorbidities #4 CBC and BMP in the morning #5 follow-up urine culture, currently growing gram-negative bacilli, continue Macrobid 100 mg twice a day, day 2 #6 request evaluation by physical therapy, Occupational Therapy and speech therapy - Problems/Diagnosis (1) Acute UTI Problem: Acute (2) CVA (cerebral vascular accident) Problem: Acute Qualifiers: CVA mechanism: embolism Laterality of affected vessel: left (3) Hypertension Problem: Chronic Qualifiers: Hypertension type: essential hypertension Qualified Code(s): I10 - Essential (primary) hypertension (4) Hyperlipidemia Problem: Chronic Qualifiers: Hyperlipidemia type: unspecified Qualified Code(s): E78.5 - Hyperlipidemia, unspecified (5) Hypothyroidism (acquired) Problem: Chronic
[2019-05-25] MEDS: FUROSEMIDE 20 MG TABLET PO SCH (09:43)
[2019-05-25] MEDS: ASPIRIN 81 MG TABLET.DR PO SCH (09:43)
[2019-05-25] MEDS: amLODIPine BESYLATE 5 MG TABLET PO SCH (09:44)
[2019-05-25] MEDS: METOPROLOL TARTRATE 25 MG TABLET PO SCH ×2 (09:44→20:33)
[2019-05-25] MEDS: NITROFURANTOIN/NITROFURAN MAC 100 MG CAPSULE PO SCH ×2 (09:44→20:35)
[2019-05-25] MEDS ORDERED: POTASSIUM BICARBONATE/CIT AC 25 MEQ TABLET.EFF PO ONE (10:37)
[2019-05-25] MEDS: ROSUVASTATIN CALCIUM 10 MG TABLET PO SCH (20:33)
[2019-05-26 06:44] LABS: Hemoglobin 12.9 gm/dL (12.5-16.0); Mean Cell Volume 90.9 fl (78-100); Mean Corpuscular Hemoglobin 28.6 pg (27-31); Mean Corpuscular Hgb Conc 31.5 g/dl (32-36); Mean Platelet Volume 10.7 fl (8-12.5); Neutrophil # 5.3 K/mm3 (1.3-6.0); Neutrophil % 65.2 % (42-75.0); Platelet Count 261 K/mm3 (150-450); Red Blood Count 4.51 M/mm3 (4.2-5.4); Red Cell Distribution Width 14.3 % (11.5-14.0); White Blood Count 8.2 K/mm3 (4.0-10.5)
[2019-05-26] MEDS: LEVOTHYROXINE SODIUM 25 MCG TABLET PO SCH (07:04)
[2019-05-26 07:06] LABS: Albumin * 3.4 gm/dl (3.4-5.0); Anion Gap 11.4 mmol/L (6.8-13.8); BUN/Creatinine Ratio 16.9 (9.0-21.6); Bilirubin, Total 0.6 mg/dL (0.0-1.1); Ca. Corrected For Albumin 9.1 mg/dL (8.4-10.2); Calcium * 8.9 mg/dL (7.9-10.9); Carbon Dioxide 31.5 mmol/L (24-32.6); Potassium 3.9 mmol/L (3.4-4.6); Total Protein 6.9 gm/dL (6.2-8.2)
[2019-05-26] MEDS: FUROSEMIDE 20 MG TABLET PO SCH (09:19)
[2019-05-26] MEDS: ASPIRIN 81 MG TABLET.DR PO SCH (09:19)
[2019-05-26] MEDS: NITROFURANTOIN/NITROFURAN MAC 100 MG CAPSULE PO SCH (09:20)
[2019-05-26] MEDS: METOPROLOL TARTRATE 25 MG TABLET PO SCH ×2 (09:20→21:17)
[2019-05-26] MEDS: amLODIPine BESYLATE 5 MG TABLET PO SCH (09:20)
[2019-05-26] MEDS: CIPROFLOXACIN HCL 500 MG TABLET PO SCH ×2 (11:49→21:17)
[2019-05-26] MEDS: ROSUVASTATIN CALCIUM 10 MG TABLET PO SCH (21:16)
--- NOTE | 2019-05-26 23:33 | PN ---
Subjective - Date and Time Seen Date: 05/26/19 Time: 10:00 Subjective Narrative: Mayra reports doing much better today. She reports her strength is improved although still weak with left arm. She reports speaking better as well. I talked with her daughter over the phone with permission from Mayra and she also believe that her mom is speaking much better today than she was even yesterday. No concerns by Mayra. Case management waiting to hear from rehab facilities on Tuesday about discharge. Objective - Vitals Vitals: Last Vital Signs Temp 36.3 C 05/26/19 19:24 Pulse 62 05/26/19 21:17 Resp 18 05/26/19 19:24 BP 122/67 05/26/19 21:17 Pulse Ox 96 05/26/19 19:24 - Abnormal Lab Findings Abnormal Lab Findings: Abnormal Lab Results 05/26/19 05/26/19 Range/Units 05:49 05:49 MCHC 31.5 L (32-36) g/dl RDW 14.3 H (11.5-14.0) % Monocytes % 9.8 H (0.0-9) % Random Glucose 121 H (70-110) mg/dL - Exam Constitutional: Present: Alert, Oriented x3, Cooperative ENT Exam: Present: hearing grossly normal Respiratory: Present: lungs clear, normal breath sounds Cardiovascular/Chest: Present: regular rate, rhythm, systolic murmur - 3+ Abdomen: Present: Normal bowel sounds, soft, nontender, nondistended Skin Exam: Present: normal color, warm/dry, no cyanosis Neurologic: Present: other - Left upper extremity 4/5 Appearance: Present: appropriate appearance, appropriate insight Eye contact: Present: cooperative, good eye contact, normal speech Assessment/Plan Plan Narrative: Mayra is admitted with acute CVA as seen on MRI suggesting embolic injury in right temporal and right parietal. Carotids and echo are relatively normal. May consider outpatient [place] for better evaluation for mural thrombus, but none present on TTE. She is on aspirin 81mg daily today and will restart eliquis tomorrow after holding for three days due to acute CVA. On crestor. Getting therapies. She has improved significantly but still weak. She would be a good candidate for inpatient stroke rehab or outpatient rehab as she would handle aggressive therapy. Her Urine culture returned positive and sensitive to Cipro, resistent to macrobid which she is currently on. Will stop this and start Cipro. - Problems/Diagnosis (1) CVA (cerebral vascular accident) Problem: Acute Qualifiers: CVA mechanism: embolism Laterality of affected vessel: right (2) Acute UTI Problem: Acute
[2019-05-27] MEDS: CIPROFLOXACIN HCL 500 MG TABLET PO SCH ×2 (09:44→20:41)
[2019-05-27] MEDS: METOPROLOL TARTRATE 25 MG TABLET PO SCH ×2 (09:44→20:41)
[2019-05-27] MEDS: amLODIPine BESYLATE 5 MG TABLET PO SCH (09:44)
[2019-05-27] MEDS: ASPIRIN 81 MG TABLET.DR PO SCH (09:44)
[2019-05-27] MEDS: FUROSEMIDE 20 MG TABLET PO SCH (09:44)
[2019-05-27] MEDS: LEVOTHYROXINE SODIUM 25 MCG TABLET PO SCH (09:48)
[2019-05-27] MEDS: ROSUVASTATIN CALCIUM 10 MG TABLET PO SCH (20:41)
--- NOTE | 2019-05-27 21:51 | PN ---
Subjective - Date and Time Seen Date: 05/27/19 Time: 10:00 Subjective Narrative: Mayra reports doing well. She continues to be weak on her left side but getting stronger daily. She has no concerns. today. No fever, chills, nausea, or vomiting. Objective - Vitals Vitals: Last Vital Signs Temp 36.6 C 05/27/19 18:23 Pulse 60 05/27/19 20:41 Resp 20 05/27/19 18:23 BP 149/55 05/27/19 20:41 Pulse Ox 96 05/27/19 18:23 - Exam Constitutional: Present: Alert, Oriented x3, Cooperative ENT Exam: Present: hearing grossly normal Respiratory: Present: lungs clear, normal breath sounds Cardiovascular/Chest: Present: regular rate, rhythm, no murmur Abdomen: Present: Normal bowel sounds, soft, nontender, nondistended Skin Exam: Present: normal color, warm/dry, no cyanosis Assessment/Plan Plan Narrative: Mayra is doing well, still looking to go to stroke rehab. Hope to hear from rehab for possible placement tomorrow. Continue Cipro for UTI based on sensitivities. - Problems/Diagnosis (1) CVA (cerebral vascular accident) Problem: Acute Qualifiers: CVA mechanism: embolism Laterality of affected vessel: right (2) Acute UTI Problem: Acute
[2019-05-28] MEDS: LEVOTHYROXINE SODIUM 25 MCG TABLET PO SCH (07:31)
[2019-05-28] MEDS: ASPIRIN 81 MG TABLET.DR PO SCH (09:00)
[2019-05-28] MEDS: CIPROFLOXACIN HCL 500 MG TABLET PO SCH ×2 (09:00→21:07)
[2019-05-28] MEDS: FUROSEMIDE 20 MG TABLET PO SCH (09:00)
[2019-05-28] MEDS: amLODIPine BESYLATE 5 MG TABLET PO SCH (09:00)
[2019-05-28] MEDS: METOPROLOL TARTRATE 25 MG TABLET PO SCH ×2 (09:00→21:08)
--- NOTE | 2019-05-28 15:44 | PN ---
Subjective - Date and Time Seen Date: 05/28/19 Time: 09:56 Subjective Narrative: She states she feels well and denies pain with urination or frequent urination. Objective - Review of Systems Generalized/Overall Review: Denies: Chills - None, Fever Respiratory: Denies: Shortness of Breath Cardiac: Denies: Chest Pain Abdominal: Denies: Abdominal Pain Genitourinary Symptoms: Denies: Frequency, Dysuria Misc: All systems neg except as marked - Vitals Vitals: Last Vital Signs Temp 36.9 C 05/28/19 14:51 Pulse 57 L 05/28/19 15:00 Resp 18 05/28/19 14:51 BP 116/58 05/28/19 14:51 Pulse Ox 97 05/28/19 14:51 - Exam Constitutional: Present: Alert, Cooperative, Well developed, Well nourished, No distress, Elderly ENT Exam: Present: hearing grossly normal Neck: Absent: lymphadenopathy (R), lymphadenopathy (L) Respiratory: Present: lungs clear, no respiratory distress, no accessory muscle use, No wheezing. Absent: crackles, rhonchi Cardiovascular/Chest: Present: normal peripheral pulses, regular rate, rhythm, no edema, no murmur Abdomen: Present: Normal bowel sounds, soft, nontender, nondistended Extremity: Present: no pedal edema Skin Exam: Present: normal color, warm/dry Neurologic: Present: porcelain slusher II-XII nml as tested, alert, facial droop - Mild left- sided facial droop on the lower one third, motor weakness - 4 out of 5 strength in the left upper extremity, 5 out of 5 strength throughout all other extremities Appearance: Present: appropriate appearance Eye contact: Present: cooperative Thoughts: Present: normal mood /affect Assessment/Plan Plan Narrative: 84-year-old female with a past medical history of atrial fibrillation on Eliq uis, hypothyroidism, hypertension, hyperlipidemia, bioprosthetic valve replacement presents from home with complaints of slurred speech. She presented to the emergency department yesterday with similar complaints and was sent home on aspirin. Her daughter spoke with her on the phone today and told her she should go back to the emergency room because she sounded like she was having a stroke. In the ER today she had a MRI done that showed multiple scattered focal areas of restricted diffusion in the right parietal and right occipital lobes consistent with multiple acute ischemic infarcts, consider embolic infarcts. She was also found to have a positive UA and given a dose of Macrobid in the ER. She will be admitted for an acute ischemic infarct. She will need carotid ultrasound and an echocardiogram. The stroke team at the [facility] has been consulted by the ER physician and recommended holding her Eliquis for 3 days to prevent hemorrhagic conversion. They recommended to start aspirin now and continue until we restart the Eliquis, then stop aspirin at that time. Patient states she did not take her Eliquis on the day of admission to the hospital. The stroke team did not think she needed to be transferred because they would not do anything differently. She feels well today and has no complaints. She is awaiting placement in a rehabilitation facility. Plan #1 continue aspirin 81 mg daily and stop once Eliquis is restarted on May 27, 2019. #2 Stop aspirin and restart her on Eliquis. #3 echocardiogram with bubble study and a bilateral carotid Doppler are negative #3 resume home medications for comorbidities #4 CBC and BMP in the morning #5 follow-up urine culture positive for Enterobacter and Klebsiella which is sensitive to fluoroquinolones. She was switched to ciprofloxacin on May 26, 2019. She will need to complete a 3-day course. #6 continue with physical therapy, Occupational Therapy and speech therapy. - Problems/Diagnosis (1) Acute UTI Problem: Acute (2) CVA (cerebral vascular accident) Problem: Acute Qualifiers: CVA mechanism: embolism Laterality of affected vessel: right (3) Hypertension Problem: Chronic Qualifiers: Hypertension type: essential hypertension Qualified Code(s): I10 - Essential (primary) hypertension (4) Hyperlipidemia Problem: Chronic Qualifiers: Hyperlipidemia type: unspecified Qualified Code(s): E78.5 - Hyperlipidemia, unspecified (5) Hypothyroidism (acquired) Problem: Chronic
[2019-05-28] MEDS: ROSUVASTATIN CALCIUM 10 MG TABLET PO SCH (21:07)
[2019-05-28] MEDS: APIXABAN 5 MG TABLET PO SCH (21:08)
[2019-05-29] MEDS: LEVOTHYROXINE SODIUM 25 MCG TABLET PO SCH (07:49)
[2019-05-29] MEDS: METOPROLOL TARTRATE 25 MG TABLET PO SCH (08:26)
[2019-05-29] MEDS: CIPROFLOXACIN HCL 500 MG TABLET PO SCH (08:26)
[2019-05-29] MEDS: APIXABAN 5 MG TABLET PO SCH (08:26)
[2019-05-29] MEDS: amLODIPine BESYLATE 5 MG TABLET PO SCH (08:27)
[2019-05-29] MEDS: FUROSEMIDE 20 MG TABLET PO SCH (08:27)
--- NOTE | 2019-05-29 10:45 | DS ---
(1) Acute UTI Problem: Acute (2) CVA (cerebral vascular accident) Problem: Acute Qualifiers: CVA mechanism: embolism Laterality of affected vessel: right (3) Hypertension Problem: Chronic Qualifiers: Hypertension type: essential hypertension Qualified Code(s): I10 - Essential (primary) hypertension (4) Hyperlipidemia Problem: Chronic Qualifiers: Hyperlipidemia type: unspecified Qualified Code(s): E78.5 - Hyperlipidemia, unspecified (5) Hypothyroidism (acquired) Problem: Chronic Hospital Course: 84-year-old female with a past medical history of atrial fibrillation on Eliqui s, hypothyroidism, hypertension, hyperlipidemia, bioprosthetic valve replacement presents from home with complaints of slurred speech. She presented to the emergency department yesterday with similar complaints and was sent home on aspirin. Her daughter spoke with her on the phone today and told her she should go back to the emergency room because she sounded like she was having a stroke. In the ER today she had a MRI done that showed multiple scattered focal areas of restricted diffusion in the right parietal and right occipital lobes consistent with multiple acute ischemic infarcts, consider embolic infarcts. She was also found to have a positive UA and given a dose of Macrobid in the ER. She will be admitted for an acute ischemic infarct. She will need carotid ultrasound and an echocardiogram. The stroke team at the [facility] has been consulted by the ER physician and recommended holding her Eliquis for 3 days to prevent hemorrhagic conversion. They recommended to start aspirin now and continue until we restart the Eliquis, then stop aspirin at that time. Patient states she did not take her Eliquis on the day of admission to the hospital. The stroke team did not think she needed to be transferred because they would not do anything differently. Aspirin has been stopped and she is back on her usual dose of Eliquis. She has been evaluated by PT, OT and ST and they believe she would benefit from rehab. She completed 3 days of ciprofloxacin for a UTI. She feels well today and has no complaints. She is stable for discharge to the [facility] today. Procedures Performed: none Results and Findings: Lab Pending Results 05/24/19 13:57: Urine Color Pale yellow, Urine Appearance Clear, Urine pH 5.5, Ur Specific [place] 1.010, Urine Protein Negative, Urine Glucose (UA) Negative, Urine Ketones Negative, Urine Blood 25 H, Urine Nitrate Positive H, Urine Bilirubin Negative, Urine Urobilinogen Normal, Ur Leukocyte Esterase Negative, Urine RBC Trace, Urine WBC Trace H, Ur Epithelial Cells 0-5, Urine Bacteria 3+ H, Urine Culture Comments Culture to follow 05/25/19 06:38: WBC 8.4, RBC 4.34, Hgb 12.6, Hct 38.9, MCV 89.6, MCH 29.0, MCHC 32.4, RDW 14.4 H, Plt Count 250, MPV 10.4, Immature Gran % (Auto) 0.20, Immature Gran # (Auto) 0.02, Neutrophils % 67.6, Lymphocytes % 22.3, Monocytes % 8.8, Eosinophils % 0.6, Basophils % 0.5, Nucleated RBC % 0.0, Neutrophils # 5.7, Lymphocytes # 1.88, Monocytes # 0.7, Eosinophils # 0.1, Absolute Basophils 0.0 05/25/19 06:38: Sodium 143 H, Plasma Sodium 143 H, Potassium 3.3 L, Chloride 104, Carbon Dioxide 30.3, Anion Gap 12.0, BUN 16, Creatinine 0.75, Est GFR (Non- Af Amer) 78 D, BUN/Creatinine Ratio 21.3, Random Glucose 112 H, Calcium 8.7, Calcium Adj for Albumin 8.9, Total Bilirubin 0.8, AST 28, ALT 29, Alkaline Phosphatase 131, Total Protein 6.9, Albumin 3.4 05/26/19 05:49: WBC 8.2, RBC 4.51, Hgb 12.9, Hct 41.0, MCV 90.9, MCH 28.6, MCHC 31.5 L, RDW 14.3 H, Plt Count 261, MPV 10.7, Immature Gran % (Auto) 0.20, Immature Gran # (Auto) 0.02, Neutrophils % 65.2, Lymphocytes % 23.0, Monocytes % 9.8 H, Eosinophils % 1.1, Basophils % 0.7, Nucleated RBC % 0.0, Neutrophils # 5.3, Lymphocytes # 1.88, Monocytes # 0.8, Eosinophils # 0.1, Absolute Basophils 0.1 05/26/19 05:49: Sodium 142, Plasma Sodium 142, Potassium 3.9, Chloride 103, Carbon Dioxide 31.5, Anion Gap 11.4, BUN 14, Creatinine 0.83, Est GFR (Non-Af Amer) 69, BUN/Creatinine Ratio 16.9, Random Glucose 121 H, Calcium 8.9, Calcium Adj for Albumin 9.1, Total Bilirubin 0.6, AST 20, ALT 26, Alkaline Phosphatase 129, Total Protein 6.9, Albumin 3.4 Discharge Location: [facility] Disposition: [facility] Home Health Agency: Other Condition: Stable Level of Care: SNF Discharge Activity: Activity as tolerated Discharge Diet: Low fat/chol Snf Therapy: Physical Therapy, Occupation Therapy, Speech Therapy Complete Home Medications List: Complete Home Medication List: Aspirin [Aspirin Enteric Coated] 81 mg PO DAILY 08/08/12 Atorvastatin Calcium [Lipitor] 10 mg PO HS 02/13/14 Metoprolol Tartrate [Lopressor] 12.5 mg PO BID 02/13/14 Ondansetron [Zofran Odt] 4 mg PO Q6H PRN #20 tab 12/01/18 Apixaban [Eliquis] 5 mg PO BID 12/07/18 Furosemide [Lasix] 20 mg PO DAILY 12/08/18 Levothyroxine Sodium [Synthroid] 25 mcg PO DAILY 12/08/18 amLODIPine BESYLATE [Norvasc] 5 mg PO DAILY 12/08/18
[2019-05-29 13:56] VITALS: BP 125/58
--- NOTE | 2019-05-31 07:34 | ECHO ---
This report is available in the EMR
== END 2019-05-29 13:57 | DRG 65 ==
LOC: ER 13:07 → MS 16:31
PROVIDERS: ADMIT Internal Medicine; ATTEND Internal Medicine
CPT/HCPCS: 36415; 70450; 70553; 71010; 71045; 80053; 81001; 85025; 85610; 85652; 85730; 87077; 87086; 87186; 93005; 93306; 93880; 96125; 97110; 97112; 97116; 97162; 97165; 97535; 99284; 99285; A9576